=== PATIENT | male | born 2000 | race Caucasian/White ===

== ENCOUNTER → 2021-10-03 10:00 | Outpatient (CLI) | payer BC, SELFPAY ==
[2021-10-03 10:38] LABS: Absolute Lymphocyte Count 2.02 X10^3/uL (0.83-4.51); Basophil# 0.04 X10^3/uL; Basophil% 0.6 % (0-1); Eosinophil# 0.07 X10^3/uL; Hematocrit 42.9 % (40-54); Hemoglobin 14.8 g/dL (13.0-16.5); Lymphocyte # 2.02 X10^3/ul (0.83-4.51); Lymphocyte % 30.2 % (19-41); Mean Corp Hgb Conc 34.5 g/dL (32-36); Mean Corpuscular Volume 86.8 fL (80-94); Mean Platelet Vol. 11.1 fl (6.2-12.0); Monocyte# 0.59 X10^3/uL; Monocyte% 8.8 % (0-10); NRBC Flagged by Analyzer 0 % (0-5); Neutrophil # 3.95 X10^3/uL (2.7-7.7); Neutrophil % 59.1 % (47-70); Platelet Count 256 K/mm3 (150-450); RBC Distribution Width CV 11.8 % (11.6-14.6); RBC Distribution Width SD 37.1 fl (35.1-43.9); Red Blood Count 4.94 M/mm3 (4.6-6.2); White Blood Count 6.7 K/mm3 (4.4-11.0)
[2021-10-03 11:22] LABS: AST(SGOT) 18 U/L (15-37); Alanine Aminotransfer ALT/SGPT 30 U/L (16-61); Albumin, Serum 4.1 g/dL (3.2-5.0); Alkaline Phosphatase 80 U/L (45-117); Anion Gap 8 (5-15); BUN 18 mg/dL (7-18); BUN/Creat Ratio 20.2 RATIO (10-20); Calcium,Total 9.2 mg/dL (8.5-10.1); Chloride 106 mmol/L (98-107); Creatinine, Serum 0.89 mg/dL (0.70-1.30); EST Glomerular Filtration Rate 116 mL/min (>60); Est Glom Filt Rate - Afr Amer 140 mL/min (>60); Glucose 87 mg/dL (74-106); Protein, Total 8.1 g/dL (6.4-8.2); Sodium Level 139 mmol/L (136-145); T4 Free Direct 0.99 ng/dL (0.76-1.46); Thyroid Stim Hormone (TSH) 1.79 uIU/mL (0.358-3.74)
[2021-10-05 17:07] LABS: Thyroid Peroxidase AB 285 IU/mL (0-34); Thyroid Stim Immunoglob 0.51 IU/L (0.00-0.55)
[2021-10-06 12:07] LABS: Thyroglobulin Antibody 27.4 IU/mL (0.0-0.9)
== END ==
PROVIDERS: PCP Family Medicine; Referring Provider Family Medicine; Visit Provider Family Medicine
DX: E01.0 Iodine-deficiency related diffuse (endemic) goiter (principal)
CPT/HCPCS: 80053; 84439; 84443; 84445; 85025; 86376; 86800

== ENCOUNTER → 2021-10-12 18:19 | Outpatient (CLI) | payer BC, SELFPAY ==
--- NOTE | 2021-10-12 18:26 | US_ITS ---
STUDY: THYROID ULTRASOUND REASON FOR EXAM: Male, 21 years old. THYROMEGALY TECHNIQUE: Ultrasound evaluation of the thyroid was performed with real-time and static cerda-scale imaging. COMPARISON: None. FINDINGS: RIGHT LOBE: The right lobe of the thyroid gland measures 4.2 x 1.6 x 1.9 cm. There is a homogeneous echotexture. There are no demonstrated solid, cystic or complex lesions. LEFT LOBE: The left lobe of the thyroid gland measures 4.0 x 1.6 x 1.4 cm. There is a homogeneous echotexture. There are no demonstrated solid, cystic or complex lesions. ISTHMUS: The isthmus measures 10 mm. 10 x 13 mm nodule of the isthmus. This nodule is solid or almost completely solid, hypoechoic, [id number], smoothly marginated and contains no echogenic foci. TI-RADS points: 4. TI-RADS category: TR4. This nodule is moderately suspicious. Recommend follow-up thyroid ultrasounds at 1, 2, 3 and 5 years. The regional lymph nodes are normal. Subcentimeter rounded hypoechoic structures deep to the thyroid gland are symmetric and likely represent parathyroid tissue. US/Thyroid IMPRESSION: 1. 10 x 13 mm Isthmus nodule. Follow-up ultrasound in one year recommended. Electronically Signed: Chi Renee MD (Brooks) at 7:39 EST , Service support ,
== END ==
PROVIDERS: PCP Family Medicine; Visit Provider Family Medicine
DX: E01.0 Iodine-deficiency related diffuse (endemic) goiter (principal)
CPT/HCPCS: 76536

== ENCOUNTER → 2021-10-30 10:23 | Outpatient (CLI) | payer BC, SELFPAY ==
--- NOTE | 2021-10-29 | FLU_PTH ---
PATIENT: ERICKA STARR LOC: [facility] U#:[id number] AGE/SX: 25/M ROOM: RE10/30/[address]: Dr. Dewayne Jaramillo MD : 2000 BED: DIS: SPEC #: [id number] RECD: 10/30/21 12:11 STATUS: MACIEJ TEVIN #: [id number] AVA: 10/29/21 00:[address]: Dewayne Jaramillo DEPT: CYTOLOGY RECD BY: Donell Espinoza ENTERED: 10/30/21 12:11 SP TYPE: Fluid OTHR DR: Dr. Tyrone Castro MD Tissues: A - Thyroid gland, NOS B - Thyroid gland, NOS Procedures: Special Stain Group II Surgery Specimen Level IV Cytospin Fluid HEADER OPERATION: Ultrasound-guided fine needle aspiration of thyroid isthmus PRE-OP DIAGNOSIS: Thyroid isthmus nodule TISSUE SUBMITTED: A - FNA thyroid isthmus nodule fluid, B - FNA thyroid isthmus nodule x10 slides DIAGNOSIS CYTOLOGY A. Fine needle aspiration, thyroid isthmus nodule (cytospin and cell block): Adequate for evaluation. Consistent with benign follicular nodule. B. Fine needle aspiration, thyroid isthmus nodule (smears): Adequate for evaluation. Negative, consistent with benign follicular nodule. Chronic thyroiditis. AM:cindi 11/02/2021 CYTOLOGY STUDY Slides are reviewed. CYTOLOGY GROSS A - Received is 15 ml of pink cloudy fluid labeled with the patient's name and and designated per the requisition as thyroid is isthmus. Submitted for cytology preparation including cell block. B - Received are ten smears labeled with the patient's name and designated per the requisition as thyroid isthmus. Submitted for staining. / cindi 10/30/2021 TC:3 CPT: 41476, 09165, 86239
== END ==
PROVIDERS: PCP Family Medicine; Visit Provider Surgery
DX: E04.1 Nontoxic single thyroid nodule (principal)
CPT/HCPCS: 88108; 88305; 88313

== ENCOUNTER → 2022-10-27 | Outpatient (CLI) | payer BC, SELFPAY ==
--- NOTE | 2022-10-27 16:35 | RAD_ITS ---
INDICATION: CAP EXAMINATION/TECHNIQUE: X-RAY - XR Chest 2 Views COMPARISON: No previous relevant examinations available for comparison.. FINDINGS: LIFE-SUPPORT AND LINES: 1. None HEART AND VESSELS: The cardiac silhouette, pulmonary vasculature have normal appearance. No evidence of congestive failure. LUNGS AND PLEURAL SPACES: Lungs are clear. No focal infiltrate, consolidation or effusions. No evidence of pneumothorax. No pulmonary mass is noted. MEDIASTINUM AND HILAR REGIONS: No masses adenopathy noted. No areas of calcification. Visualized upper airway is normal in position. BONY ELEMENTS: No acute bony changes noted. RAD/Chest PA and Lateral IMPRESSION: 1. No evidence of acute cardiopulmonary process Electronically Signed: Giovani Camargo MD at 18:49 EST ,
[2022-10-27 17:46] LABS: Absolute Lymphocyte Count 2.17 X10^3/uL (0.83-4.51); Absolute Neutrophil Count 5.3 X10^3/uL (2.0-7.7); Basophil# 0.03 X10^3/uL; Basophil% 0.4 % (0-1); Eosinophil# 0.03 X10^3/uL; Eosinophils% 0.4 % (0-5); Hematocrit 44.8 % (40-54); Hemoglobin 15.2 g/dL (13.0-16.5); Lymphocyte # 2.17 X10^3/ul (0.83-4.51); Lymphocyte % 26.9 % (19-41); Mean Corp Hgb Conc 33.9 g/dL (32-36); Mean Corpuscular Hgb 30.3 pg (27.0-32.0); Mean Corpuscular Volume 89.2 fL (80-94); Mean Platelet Vol. 10.8 fl (6.2-12.0); Monocyte# 0.55 X10^3/uL; Monocyte% 6.8 % (0-10); NRBC Flagged by Analyzer 0 % (0-5); Neutrophil # 5.25 X10^3/uL (2.7-7.7); Neutrophil % 65.1 % (47-70); Platelet Count 280 K/mm3 (150-450); RBC Distribution Width CV 12.8 % (11.6-14.6); RBC Distribution Width SD 41.6 fl (35.1-43.9); Red Blood Count 5.02 M/mm3 (4.6-6.2); White Blood Count 8.1 K/mm3 (4.4-11.0)
[2022-10-27 18:13] LABS: ALB/GLOB Ratio 1.4 RATIO (0.9-2.4); AST(SGOT) 24 U/L (15-37); Alanine Aminotransfer ALT/SGPT 43 U/L (16-61); Alkaline Phosphatase 81 U/L (45-117); Anion Gap 5 (5-15); BUN 15 mg/dL (7-18); BUN/Creat Ratio 16.3 RATIO (10-20); Calcium,Total 9.8 mg/dL (8.5-10.1); Chloride 103 mmol/L (98-107); Creatinine, Serum 0.92 mg/dL (0.70-1.30); EST Glomerular Filtration Rate 110 mL/min (>60); Est Glom Filt Rate - Afr Amer 133 mL/min (>60); Globulin 3.6 g/dL (2.2-4.2); Glucose 87 mg/dL (74-106); Potassium 3.6 mmol/L (3.5-5.1); Protein, Total 8.6 g/dL (6.4-8.2); Sodium Level 138 mmol/L (136-145); T4 Free Direct 0.96 ng/dL (0.76-1.46); Thyroid Stim Hormone (TSH) 3.19 uIU/mL (0.358-3.74)
[2022-11-09 12:42] LABS: Anti-Thyroglobulin AB 52.6 IU/mL (0.0-0.9); Thyroglobulin RIA 10 ng/mL (.); Thyroid Peroxidase AB 303 IU/mL (0-34)
== END | disposition home or self-care (01) ==
PROVIDERS: PCP Family Medicine; Referring Provider Family Medicine; Visit Provider Family Medicine
DX: J18.9 Pneumonia, unspecified organism (principal); E06.3 Autoimmune thyroiditis
CPT/HCPCS: 36415; 71046; 80053; 84432; 84439; 84443; 85025; 86376; 86800

== ENCOUNTER → 2022-11-04 | Outpatient (CLI) | payer BC, SELFPAY ==
--- NOTE | 2022-11-04 16:47 | US_ITS ---
STUDY: THYROID ULTRASOUND REASON FOR EXAM: Male, 22 years old. NODULE-F/U TECHNIQUE: Ultrasound evaluation of the thyroid was performed with real-time and static cerda-scale imaging. COMPARISON: October 12, 2021 thyroid ultrasound FINDINGS: RIGHT LOBE: The right lobe of the thyroid gland measures 5.2 x 2.0 x 2.0 cm. There is a homogeneous echotexture. There are no demonstrated solid, cystic or complex lesions. Posterior to the right-sided thyroid there is a 5 x 5 x 6 mm stable solid nodular density. There is a coarse calcification within the right thyroid. LEFT LOBE: The left lobe of the thyroid gland measures 4.7 x 1.8 x 1.2 cm. There is a homogeneous echotexture. There are no demonstrated solid, cystic or complex lesions. ISTHMUS: The isthmus measures 5 mm there is a stable isthmus nodule measuring 2.7 x 1.4 x 0.7 cm this is relatively unchanged when compared to the prior study.. The regional lymph nodes are normal. US/Thyroid IMPRESSION: Dominant isthmus nodule measuring 2.7 x 1.4 x 0.7 cm, focal mass within the isthmus with increased vascularity. Although this is stable could consider follow-up study which could potentially include biopsy for further characterization. Electronically Signed: Marquita Cuenca MD at 17:39 EST ,
== END | disposition home or self-care (01) ==
LOC: US 16:46
PROVIDERS: PCP Family Medicine; Referring Provider Family Medicine; Visit Provider Family Medicine
DX: E04.1 Nontoxic single thyroid nodule (principal)
CPT/HCPCS: 76536

== ENCOUNTER → 2022-11-24 | Outpatient (CLI) | payer BC, SELFPAY ==
--- NOTE | 2022-11-24 17:40 | RAD_ITS ---
STUDY: X-RAY CHEST REASON FOR EXAM: Male, 22 years old. PLEURISY TECHNIQUE: PA and lateral views of the chest. COMPARISON: 10/27/2022 FINDINGS: The lungs are clear and expanded. There is no demonstrated pleural abnormality. Normal size heart. Normal mediastinum and zahira. Normal visualized pulmonary arteries. Normal visualized aortic arch and descending thoracic aorta. Normal visualized thoracic spine. Normal visualized ribs, clavicles, and shoulders. There is no demonstrated abnormality of the visualized soft tissue structures of the upper abdomen. RAD/Chest PA and Lateral IMPRESSION: Normal x-ray examination of the chest. Electronically Signed: Giovani Hunt MD at 9:17 EST ,
== END | disposition home or self-care (01) ==
LOC: LAB 17:27
PROVIDERS: PCP Family Medicine; Visit Provider Family Medicine
DX: R09.1 Pleurisy (principal); R06.02 Shortness of breath
CPT/HCPCS: 36415; 71046; 85379

== ENCOUNTER → 2023-04-27 | Outpatient (CLI) | payer BC, SELFPAY ==
[2023-04-27 18:03] LABS: T4 Free Direct 1.06 ng/dL (0.76-1.46); Thyroid Stim Hormone (TSH) 1.81 uIU/mL (0.358-3.74)
== END | disposition home or self-care (01) ==
LOC: MFPLAB 16:01
PROVIDERS: PCP Family Medicine; Visit Provider Family Medicine
DX: E06.3 Autoimmune thyroiditis (principal)
CPT/HCPCS: 36415; 84439; 84443

== ENCOUNTER → 2023-08-12 | Outpatient (CLI) | payer BC, SELFPAY ==
--- NOTE | 2023-08-12 12:55 | RAD_ITS ---
INDICATION: injury hit in lower leg with softball 3 weeks ago, redness, swelling EXAMINATION/TECHNIQUE: X-RAY - RIGHT XR Tibia/Fibula 2 Views 4 VIEWS COMPARISON: FINDINGS: BONES: No fracture demonstrated. JOINTS: No dislocation. SOFT TISSUES: Unremarkable. RAD/Tibia & Fibula 2 Views IMPRESSION: No evidence of fracture. Electronically Signed: Johana Lee MD at 5:00 EDT ,
== END | disposition home or self-care (01) ==
LOC: MTRAD 12:45
PROVIDERS: PCP Family Medicine; Referring Provider Family Medicine; Visit Provider Family Medicine
DX: L03.115 Cellulitis of right lower limb (principal)
CPT/HCPCS: 73590

== ENCOUNTER → 2023-10-25 | Outpatient (CLI) | payer BC, SELFPAY ==
[2023-10-25 17:42] LABS: Absolute Lymphocyte Count 2.04 X10^3/uL (0.83-4.51); Absolute Neutrophil Count 4.3 X10^3/uL (2.0-7.7); Basophil# 0.04 X10^3/uL; Basophil% 0.6 % (0-1); Eosinophil# 0.06 X10^3/uL; Eosinophils% 0.9 % (0-5); Hematocrit 45.2 % (40-54); Hemoglobin 15.6 g/dL (13.0-16.5); Lymphocyte # 2.04 X10^3/ul (0.83-4.51); Mean Corp Hgb Conc 34.5 g/dL (32-36); Mean Corpuscular Hgb 30.2 pg (27.0-32.0); Mean Corpuscular Volume 87.6 fL (80-94); Mean Platelet Vol. 11.2 fl (6.2-12.0); Monocyte# 0.55 X10^3/uL; Monocyte% 7.8 % (0-10); NRBC Flagged by Analyzer 0 % (0-5); Neutrophil # 4.33 X10^3/uL (2.7-7.7); Neutrophil % 61.6 % (47-70); Platelet Count 243 K/mm3 (150-450); RBC Distribution Width CV 12.2 % (11.6-14.6); RBC Distribution Width SD 38.9 fl (35.1-43.9); Red Blood Count 5.16 M/mm3 (4.6-6.2)
[2023-10-25 18:22] LABS: ALB/GLOB Ratio 1.1 RATIO (0.9-2.4); AST(SGOT) 19 U/L (15-37); Alanine Aminotransfer ALT/SGPT 21 U/L (16-61); Albumin, Serum 4.3 g/dL (3.2-5.0); Alkaline Phosphatase 70 U/L (45-117); Anion Gap 7 (5-15); BUN 14 mg/dL (7-18); BUN/Creat Ratio 15.9 RATIO (10-20); Calcium,Total 8.9 mg/dL (8.5-10.1); Chloride 103 mmol/L (98-107); Creatinine, Serum 0.88 mg/dL (0.70-1.30); EST Glomerular Filtration Rate 115 mL/min (>60); Est Glom Filt Rate - Afr Amer 139 mL/min (>60); Glucose 75 mg/dL (74-106); Potassium 3.8 mmol/L (3.5-5.1); Protein, Total 8.3 g/dL (6.4-8.2); Sodium Level 137 mmol/L (136-145); T4 Free Direct 0.87 ng/dL (0.76-1.46)
== END | disposition home or self-care (01) ==
LOC: MTLAB 16:51
PROVIDERS: PCP Family Medicine; Referring Provider Family Medicine; Visit Provider Family Medicine
DX: E06.3 Autoimmune thyroiditis (principal); E04.1 Nontoxic single thyroid nodule
CPT/HCPCS: 36415; 80053; 84439; 84443; 85025

== ENCOUNTER → 2023-11-18 | Outpatient (CLI) | payer BC, SELFPAY ==
--- NOTE | 2023-11-18 14:48 | US_ITS ---
STUDY: THYROID ULTRASOUND REASON FOR EXAM: Male, 23 years old. THYROID NODULE f/u TECHNIQUE: Ultrasound evaluation of the thyroid was performed with real-time and static cerda-scale imaging. COMPARISON: Thyroid ultrasound dated November 04, 2022 FINDINGS: RIGHT LOBE: The right lobe of the thyroid gland measures 4.7 x 1.7 x 1.7 cm. There is a heterogeneous echotexture. There is no dominant nodules but a diffusely micronodular pattern of alternating hypodensity and hyperechoic heterogeneous tissue suggesting sequela of thyroiditis or multinodular goiter. Small circumscribed nodule in the posterior aspect of the right lobe of the thyroid gland appears to represent a parathyroid gland and does not appear to represent a parenchymal nodule, see image 38/100 series 1. LEFT LOBE: The left lobe of the thyroid gland measures 4.8 x 1.8 x 1.3 cm. There is a heterogeneous echotexture. There is no dominant nodules but a diffusely micronodular pattern of alternating hypodensity and hyperechoic heterogeneous tissue suggesting sequela of thyroiditis or multinodular goiter. No demonstrated hypervascularity on the current study. ISTHMUS: The isthmus measures 6 mm. Nodular focus of hypertrophic thyroid tissue is just to the left of midline in the isthmus measuring 1.35 x 1.0 cm in diameter, which represents a moderate decrease from the prior measurement of to 0.7 x 1.4 cm. Reactive level 2 lymphadenopathy is present in the neck with the largest lymph node measuring up to 1.7 cm. US/Thyroid IMPRESSION: 1. ISTHMUS: The isthmus measures 6 mm. Nodular focus of hypertrophic thyroid tissue is just to the left of midline in the isthmus measuring 1.35 x 1.0 cm in diameter, which represents a moderate decrease from the prior measurement of to 2.7 x 1.4 cm. 2. Reactive level 2 lymphadenopathy is present in the neck with the largest lymph node measuring up to 1.7 cm. Electronically Signed: Storm Overton MD at 10:11 EST ,
== END | disposition home or self-care (01) ==
LOC: US 14:46
PROVIDERS: PCP Family Medicine; Referring Provider Family Medicine; Visit Provider Family Medicine
DX: E04.1 Nontoxic single thyroid nodule (principal)
CPT/HCPCS: 76536